=== PATIENT | male | born 1955 | race Caucasian/White ===

== ENCOUNTER 2016-05-03 05:26 | Inpatient (IN) | payer OTHER ==
[2016-05-03] MEDS ORDERED: PRILOSEC OTC20 M1 PO (05:41)
[2016-05-03 06:31] LABS: HCT-HEMATOCRIT 53.2 % (36.0-53.5); HGB-HEMOGLOBIN 18.6 gm/dl (13.5-17.0); MCH (MEAN CORPUSCULAR HGB) 33.5 pg (28.0-32.0); MCV (MEAN CELL VOLUME) 95.9 fl (82.0-96.0); MEAN PLATELET VOLUME 11.3 cmc (9.4-12.4); PLATELET COUNT 562 tho/cmm (150-450); RED BLOOD COUNT 5.55 mil/cmm (4.40-5.70); RED CELL DISTRIBUTION WIDTH 13.5 % (12.4-16.4)
[2016-05-03 06:34] LABS: WHITE BLOOD COUNT 38.6 tho/cmm (4.0-10.0)
[2016-05-03] MEDS ORDERED: CIPRO500 M2 PO (07:02)
[2016-05-03] MEDS ORDERED: FLAGYL500 M1 PO (07:03)
[2016-05-03 07:21] LABS: BAND % 6 % (0-20); BAND ABSOLUTE COUNT 2.3 tho/cmm (0-2.0)
[2016-05-03 07:23] LABS: WBC MORPHOLOGY VARIANT LYMPHS
[2016-05-03 07:31] LABS: CHLORIDE 98 mmol/l (96-110); POTASSIUM 4.9 mmol/L (3.7-5.1); SODIUM 137 mmol/L (135-145)
[2016-05-03 07:33] LABS: PROCALCITONIN 38.44 ng/ml (0.05-0.09)
[2016-05-03 07:40] LABS: ALB/GLOB RATIO 0.5 (0.8-2.0); ALBUMIN 3.1 g/dl (3.5-5.0); ALCOHOL (ETOH) <10 mg/dl (<10); ALKALINE PHOSPHATASE 144 U/L (33-138); ALT/SGPT 24 U/L (12-78); ANION GAP 29 mmol/L (0-20); AST/SGOT 23 U/L (10-40); BILIRUBIN,TOTAL 0.5 mg/dl (0.0-1.5); BLOOD UREA NITROGEN 150 mg/dl (6-24); CALCIUM 10.5 mg/dl (8.5-10.5); CARBON DIOXIDE-VENOUS 15 mmol/L (22-32); CREATININE 8.93 mg/dl (0.60-1.30); GLUCOSE 167 mg/dL (70-110); LIPASE 506 U/L (73-393); eGFR VALUE FOR BLACK 7 mL/Min
[2016-05-03 12:23] LABS: URINE LEUKOCYTE ESTERASE POSITIVE (NEG); URINE PROTEIN MODERATE (NEG); URINE SPECIFIC GRAVITY 1.025 (1.003-1.030)
[2016-05-03 12:24] LABS: URINE APPEARANCE CLOUDY; URINE BILIRUBIN SMALL (NEG); URINE BLOOD MODERATE (NEG); URINE COLOR BROWN; URINE GLUCOSE (UA) SMALL (NEG); URINE KETONE SMALL (NEG); URINE NITRITE POSITIVE (NEG)
[2016-05-03 12:36] LABS: URINE AMORPHOUS 4+; URINE BACTERIA 1+; URINE EPITHELIAL CELLS RARE /[HPF] (0-10)
[2016-05-03 14:03] LABS: MAGNESIUM 2.7 mg/dl (1.3-2.6)
[2016-05-03 14:04] LABS: ANION GAP 26 mmol/L (0-20); CARBON DIOXIDE-VENOUS 12 mmol/L (22-32); CHLORIDE 104 mmol/l (96-110); CREATININE 8.34 mg/dl (0.60-1.30); GLUCOSE 147 mg/dL (70-110); POTASSIUM 4.4 mmol/L (3.7-5.1); SODIUM 138 mmol/L (135-145); eGFR VALUE FOR BLACK 7 mL/Min
[2016-05-03 14:05] LABS: PHOSPHOROUS 11.4 mg/dl (2.5-4.9)
[2016-05-03 14:06] LABS: BLOOD UREA NITROGEN 146 mg/dl (6-24)
[2016-05-03 18:22] LABS: CALCIUM 8.5 mg/dl (8.5-10.5); CARBON DIOXIDE-VENOUS 16 mmol/L (22-32); CHLORIDE 96 mmol/l (96-110); CREATININE 8.02 mg/dl (0.60-1.30); GLUCOSE 184 mg/dL (70-110); SODIUM 136 mmol/L (135-145); eGFR VALUE FOR BLACK 8 mL/Min
[2016-05-03 18:26] LABS: ANION GAP 28 mmol/L (0-20); BLOOD UREA NITROGEN 148 mg/dl (6-24)
[2016-05-03 18:27] LABS: POTASSIUM 4.2 mmol/L (3.7-5.1)
[2016-05-04 00:52] LABS: ANION GAP 23 mmol/L (0-20); CALCIUM 8.2 mg/dl (8.5-10.5); CARBON DIOXIDE-VENOUS 19 mmol/L (22-32); CHLORIDE 98 mmol/l (96-110); CREATININE 8.28 mg/dl (0.60-1.30); GLUCOSE 129 mg/dL (70-110); SODIUM 136 mmol/L (135-145); eGFR VALUE FOR BLACK 7 mL/Min
[2016-05-04 00:57] LABS: BLOOD UREA NITROGEN 158 mg/dl (6-24)
[2016-05-04 04:14] LABS: ALBUMIN 1.9 g/dl (3.5-5.0); ALKALINE PHOSPHATASE 72 U/L (33-138); ALT/SGPT 16 U/L (12-78); ANION GAP 23 mmol/L (0-20); AST/SGOT 26 U/L (10-40); CALCIUM 7.9 mg/dl (8.5-10.5); CARBON DIOXIDE-VENOUS 22 mmol/L (22-32); CHLORIDE 95 mmol/l (96-110); CREATININE 8.25 mg/dl (0.60-1.30); GLUCOSE 134 mg/dL (70-110); POTASSIUM 3.7 mmol/L (3.7-5.1); SODIUM 136 mmol/L (135-145); eGFR VALUE FOR BLACK 7 mL/Min
[2016-05-04 04:34] LABS: ALB/GLOB RATIO 0.4 (0.8-2.0); BILIRUBIN,TOTAL 1.2 mg/dl (0.0-1.5); BLOOD UREA NITROGEN 160 mg/dl (6-24)
[2016-05-04 04:35] LABS: BASO % 0.1 % (0-2); HGB-HEMOGLOBIN 15.7 gm/dl (13.5-17.0); IMMATURE GRANULOCYTES ABSOLUTE 0.29 tho/cmm (0-0.03); LYMPH % 4.5 % (20-45); LYMPH ABSOLUTE COUNT 1.3 tho/cmm (0.8-4.5); MCH (MEAN CORPUSCULAR HGB) 33.6 pg (28.0-32.0); MEAN PLATELET VOLUME 11.5 cmc (9.4-12.4); MONOCYTE ABSOLUTE COUNT 2.6 tho/cmm (0.0-1.2); NEUTROPHIL ABSOLUTE COUNT 24.9 tho/cmm (1.6-8.0); NEUTROPHIL-AUTOMATED 24.9 tho/cmm (1.6-8.0); NEUTROPHILS % 85.4 % (40-80); PLATELET COUNT 444 tho/cmm (150-450); RED BLOOD COUNT 4.67 mil/cmm (4.40-5.70); WHITE BLOOD COUNT 29.2 tho/cmm (4.0-10.0)
[2016-05-04 04:37] LABS: MCV (MEAN CELL VOLUME) 89.9 fl (82.0-96.0)
[2016-05-04 04:39] LABS: MCHC MEAN CORPUSCULAR HGB CONC 37.4 % (32.0-36.0)
[2016-05-04 05:16] LABS: URINE TOTAL PROTEIN-RANDOM 160.7 mg/dl (<11.8)
[2016-05-04 13:40] LABS: ANION GAP 23 mmol/L (0-20); CALCIUM 7.4 mg/dl (8.5-10.5); CARBON DIOXIDE-VENOUS 26 mmol/L (22-32); CHLORIDE 93 mmol/l (96-110); CREATININE 8.33 mg/dl (0.60-1.30); GLUCOSE 128 mg/dL (70-110); POTASSIUM 3.5 mmol/L (3.7-5.1); SODIUM 138 mmol/L (135-145); eGFR VALUE FOR BLACK 7 mL/Min
[2016-05-04 13:46] LABS: BLOOD UREA NITROGEN 160 mg/dl (6-24)
[2016-05-05 03:40] LABS: HCT-HEMATOCRIT 37.2 % (36.0-53.5); HGB-HEMOGLOBIN 13.6 gm/dl (13.5-17.0); MCH (MEAN CORPUSCULAR HGB) 33.3 pg (28.0-32.0); MCV (MEAN CELL VOLUME) 91.2 fl (82.0-96.0); MEAN PLATELET VOLUME 11.3 cmc (9.4-12.4); NEUTROPHIL-AUTOMATED 33.2 tho/cmm (1.6-8.0); PLATELET COUNT 394 tho/cmm (150-450); RED BLOOD COUNT 4.08 mil/cmm (4.40-5.70); RED CELL DISTRIBUTION WIDTH 13.2 % (12.4-16.4)
[2016-05-05 03:45] LABS: ALB/GLOB RATIO 0.4 (0.8-2.0); ALBUMIN 1.8 g/dl (3.5-5.0); ALKALINE PHOSPHATASE 66 U/L (33-138); ALT/SGPT 14 U/L (12-78); ANION GAP 18 mmol/L (0-20); AST/SGOT 29 U/L (10-40); BILIRUBIN,DIRECT 0.3 mg/dl (0.0-0.3); BILIRUBIN,INDIRECT 0.4 mg/dL (0.0-1.0); BILIRUBIN,TOTAL 0.7 mg/dl (0.0-1.5); BLOOD UREA NITROGEN 126 mg/dl (6-24); CALCIUM 7.5 mg/dl (8.5-10.5); CARBON DIOXIDE-VENOUS 24 mmol/L (22-32); CHLORIDE 98 mmol/l (96-110); CREATININE 6.82 mg/dl (0.60-1.30); GLUCOSE 119 mg/dL (70-110); MAGNESIUM 2.1 mg/dl (1.3-2.6); POTASSIUM 3.9 mmol/L (3.7-5.1); SODIUM 136 mmol/L (135-145); eGFR VALUE FOR BLACK 9 mL/Min
[2016-05-05 03:48] LABS: PHOSPHOROUS 7.6 mg/dl (2.5-4.9)
[2016-05-05 03:49] LABS: MCHC MEAN CORPUSCULAR HGB CONC 36.6 % (32.0-36.0)
[2016-05-05 03:55] LABS: WHITE BLOOD COUNT 38.3 tho/cmm (4.0-10.0)
[2016-05-05 07:14] LABS: BAND % 23 % (0-20); BAND ABSOLUTE COUNT 8.8 tho/cmm (0-2.0)
[2016-05-05 07:17] LABS: PLATELET MORPHOLOGY MACRO
[2016-05-06 04:33] LABS: HCT-HEMATOCRIT 33.7 % (36.0-53.5); HGB-HEMOGLOBIN 12.1 gm/dl (13.5-17.0); MCH (MEAN CORPUSCULAR HGB) 33.2 pg (28.0-32.0); MCHC MEAN CORPUSCULAR HGB CONC 35.9 % (32.0-36.0); MCV (MEAN CELL VOLUME) 92.6 fl (82.0-96.0); MEAN PLATELET VOLUME 11.5 cmc (9.4-12.4); NEUTROPHIL-AUTOMATED 40.7 tho/cmm (1.6-8.0); RED BLOOD COUNT 3.64 mil/cmm (4.40-5.70); RED CELL DISTRIBUTION WIDTH 13.6 % (12.4-16.4)
[2016-05-06 04:35] LABS: ALB/GLOB RATIO 0.4 (0.8-2.0); ALBUMIN 1.4 g/dl (3.5-5.0); ALKALINE PHOSPHATASE 72 U/L (33-138); ALT/SGPT 11 U/L (12-78); ANION GAP 14 mmol/L (0-20); AST/SGOT 23 U/L (10-40); BILIRUBIN,DIRECT 0.2 mg/dl (0.0-0.3); BILIRUBIN,INDIRECT 0.3 mg/dL (0.0-1.0); BILIRUBIN,TOTAL 0.5 mg/dl (0.0-1.5); BLOOD UREA NITROGEN 81 mg/dl (6-24); CALCIUM 7.6 mg/dl (8.5-10.5); CARBON DIOXIDE-VENOUS 22 mmol/L (22-32); CHLORIDE 105 mmol/l (96-110); CREATININE 5.17 mg/dl (0.60-1.30); GLUCOSE 159 mg/dL (70-110); MAGNESIUM 2.2 mg/dl (1.3-2.6); PHOSPHOROUS 6.4 mg/dl (2.5-4.9); POTASSIUM 4.1 mmol/L (3.7-5.1); PREALBUMIN 8.1 mg/dl (20.0-40.0); SODIUM 137 mmol/L (135-145); eGFR VALUE FOR BLACK 13 mL/Min
[2016-05-06 04:56] LABS: WHITE BLOOD COUNT 44.9 tho/cmm (4.0-10.0)
[2016-05-06 07:27] LABS: PLATELET COUNT 351 tho/cmm (150-450)
[2016-05-06 07:31] LABS: BAND % 24 % (0-20); BAND ABSOLUTE COUNT 10.8 tho/cmm (0-2.0)
[2016-05-06 07:32] LABS: PLATELET MORPHOLOGY MACRO
[2016-05-07 05:03] LABS: HCT-HEMATOCRIT 32.9 % (36.0-53.5); HGB-HEMOGLOBIN 11.5 gm/dl (13.5-17.0); MCV (MEAN CELL VOLUME) 94.3 fl (82.0-96.0); MEAN PLATELET VOLUME 11.9 cmc (9.4-12.4); NEUTROPHIL-AUTOMATED 36.6 tho/cmm (1.6-8.0); PLATELET COUNT 331 tho/cmm (150-450); RED BLOOD COUNT 3.49 mil/cmm (4.40-5.70); RED CELL DISTRIBUTION WIDTH 13.9 % (12.4-16.4)
[2016-05-07 05:11] LABS: WHITE BLOOD COUNT 43.5 tho/cmm (4.0-10.0)
[2016-05-07 05:17] LABS: ALB/GLOB RATIO 0.3 (0.8-2.0); ALBUMIN 1.4 g/dl (3.5-5.0); ALKALINE PHOSPHATASE 117 U/L (33-138); ALT/SGPT 15 U/L (12-78); ANION GAP 14 mmol/L (0-20); AST/SGOT 31 U/L (10-40); BLOOD UREA NITROGEN 52 mg/dl (6-24); CALCIUM 7.7 mg/dl (8.5-10.5); CARBON DIOXIDE-VENOUS 24 mmol/L (22-32); CHLORIDE 102 mmol/l (96-110); CREATININE 3.95 mg/dl (0.60-1.30); GLUCOSE 114 mg/dL (70-110); MAGNESIUM 1.9 mg/dl (1.3-2.6); POTASSIUM 3.3 mmol/L (3.7-5.1); SODIUM 137 mmol/L (135-145); eGFR VALUE FOR BLACK 18 mL/Min
[2016-05-07 05:27] LABS: BILIRUBIN,DIRECT 0.7 mg/dl (0.0-0.3); BILIRUBIN,INDIRECT 0.3 mg/dL (0.0-1.0)
[2016-05-07 07:44] LABS: BAND % 15 % (0-20); BAND ABSOLUTE COUNT 6.5 tho/cmm (0-2.0)
[2016-05-08 05:26] LABS: ALT/SGPT 24 U/L (12-78); ANION GAP 17 mmol/L (0-20); BLOOD UREA NITROGEN 72 mg/dl (6-24); CALCIUM 8.1 mg/dl (8.5-10.5); CARBON DIOXIDE-VENOUS 19 mmol/L (22-32); CHLORIDE 99 mmol/l (96-110); GLUCOSE 155 mg/dL (70-110); PHOSPHOROUS 2.2 mg/dl (2.5-4.9); POTASSIUM 3.1 mmol/L (3.7-5.1); SODIUM 132 mmol/L (135-145)
[2016-05-08 05:29] LABS: ALKALINE PHOSPHATASE 232 U/L (33-138); AST/SGOT 48 U/L (10-40); BILIRUBIN,INDIRECT 0.6 mg/dL (0.0-1.0); BILIRUBIN,TOTAL 1.6 mg/dl (0.0-1.5); CREATININE 5.07 mg/dl (0.60-1.30); eGFR VALUE FOR BLACK 13 mL/Min
[2016-05-08 05:53] LABS: HCT-HEMATOCRIT 34.8 % (36.0-53.5); HGB-HEMOGLOBIN 12.1 gm/dl (13.5-17.0); MCH (MEAN CORPUSCULAR HGB) 33.2 pg (28.0-32.0); MCHC MEAN CORPUSCULAR HGB CONC 34.8 % (32.0-36.0); MCV (MEAN CELL VOLUME) 95.3 fl (82.0-96.0); MEAN PLATELET VOLUME 11.7 cmc (9.4-12.4); NEUTROPHIL-AUTOMATED 39.6 tho/cmm (1.6-8.0); PLATELET COUNT 351 tho/cmm (150-450); RED BLOOD COUNT 3.65 mil/cmm (4.40-5.70)
[2016-05-08 05:59] LABS: WHITE BLOOD COUNT 45.7 tho/cmm (4.0-10.0)
[2016-05-08 06:05] LABS: ALB/GLOB RATIO 0.3 (0.8-2.0); ALBUMIN 1.5 g/dl (3.5-5.0)
[2016-05-08 08:17] LABS: BAND % 5 % (0-20); BAND ABSOLUTE COUNT 2.3 tho/cmm (0-2.0); EOSINOPHIL % 1 % (0-7)
[2016-05-08 08:19] LABS: WBC MORPHOLOGY VACUOLES
[2016-05-09 06:06] LABS: HCT-HEMATOCRIT 32.9 % (36.0-53.5); HGB-HEMOGLOBIN 11.7 gm/dl (13.5-17.0); MCH (MEAN CORPUSCULAR HGB) 33.2 pg (28.0-32.0); MCHC MEAN CORPUSCULAR HGB CONC 35.6 % (32.0-36.0); MCV (MEAN CELL VOLUME) 93.5 fl (82.0-96.0); MEAN PLATELET VOLUME 11.1 cmc (9.4-12.4); PLATELET COUNT 343 tho/cmm (150-450); RED BLOOD COUNT 3.52 mil/cmm (4.40-5.70); RED CELL DISTRIBUTION WIDTH 13.7 % (12.4-16.4)
[2016-05-09 06:11] LABS: NEUTROPHIL-AUTOMATED 55.7 tho/cmm (1.6-8.0)
[2016-05-09 06:13] LABS: WHITE BLOOD COUNT 61.6 tho/cmm (4.0-10.0)
[2016-05-09 06:25] LABS: ALB/GLOB RATIO 0.4 (0.8-2.0); ALBUMIN 2.1 g/dl (3.5-5.0); ALKALINE PHOSPHATASE 337 U/L (33-138); ANION GAP 14 mmol/L (0-20); BILIRUBIN,DIRECT 1.4 mg/dl (0.0-0.3); BILIRUBIN,INDIRECT 0.6 mg/dL (0.0-1.0); BLOOD UREA NITROGEN 57 mg/dl (6-24); CALCIUM 8.6 mg/dl (8.5-10.5); CARBON DIOXIDE-VENOUS 23 mmol/L (22-32); CHLORIDE 99 mmol/l (96-110); CREATININE 4.03 mg/dl (0.60-1.30); GLUCOSE 124 mg/dL (70-110); MAGNESIUM 1.9 mg/dl (1.3-2.6); PHOSPHOROUS 1.2 mg/dl (2.5-4.9); POTASSIUM 3.3 mmol/L (3.7-5.1); SODIUM 133 mmol/L (135-145); eGFR VALUE FOR BLACK 18 mL/Min
[2016-05-09 06:36] LABS: ALT/SGPT 55 U/L (12-78); AST/SGOT 101 U/L (10-40)
[2016-05-09 07:35] LABS: BAND % 7 % (0-20); BAND ABSOLUTE COUNT 4.3 tho/cmm (0-2.0); EOSINOPHIL % 1 % (0-7)
[2016-05-09 07:37] LABS: WBC MORPHOLOGY TOXIC GRANULATION
[2016-05-09 13:42] LABS: IRON 16 ug/dl (49-181); IRON BINDING CAPACITY 188 ug/dl (250-450)
[2016-05-10 07:43] LABS: BASO % 0.1 % (0-2); BASO ABSOLUTE COUNT 0.1 tho/cmm (0.0-0.2); EOS % 1.2 % (0-7); EOSINOPHIL ABSOLUTE COUNT 0.6 tho/cmm (0.0-0.7); HCT-HEMATOCRIT 30.3 % (36.0-53.5); HGB-HEMOGLOBIN 11.2 gm/dl (13.5-17.0); IMMATURE GRANULOCYTES PERCENT 2.2 % (0-0.3); LYMPH % 4.6 % (20-45); LYMPH ABSOLUTE COUNT 2.3 tho/cmm (0.8-4.5); MCH (MEAN CORPUSCULAR HGB) 34.8 pg (28.0-32.0); MCV (MEAN CELL VOLUME) 94.1 fl (82.0-96.0); MEAN PLATELET VOLUME 11.8 cmc (9.4-12.4); MONO % 3.9 % (0-12); NEUTROPHIL ABSOLUTE COUNT 43.6 tho/cmm (1.6-8.0); NEUTROPHIL-AUTOMATED 43.6 tho/cmm (1.6-8.0); PLATELET COUNT 401 tho/cmm (150-450); RED BLOOD COUNT 3.22 mil/cmm (4.40-5.70); RED CELL DISTRIBUTION WIDTH 14.3 % (12.4-16.4)
[2016-05-10 07:44] LABS: WHITE BLOOD COUNT 49.6 tho/cmm (4.0-10.0)
[2016-05-10 07:50] LABS: ALB/GLOB RATIO 0.3 (0.8-2.0); ALBUMIN 1.8 g/dl (3.5-5.0); ALKALINE PHOSPHATASE 298 U/L (33-138); ALT/SGPT 46 U/L (12-78); BILIRUBIN,TOTAL 1.5 mg/dl (0.0-1.5); BLOOD UREA NITROGEN 75 mg/dl (6-24); CALCIUM 8.7 mg/dl (8.5-10.5); CARBON DIOXIDE-VENOUS 21 mmol/L (22-32); CHLORIDE 101 mmol/l (96-110); CREATININE 4.44 mg/dl (0.60-1.30); GLUCOSE 158 mg/dL (70-110); PHOSPHOROUS 2.8 mg/dl (2.5-4.9); SODIUM 134 mmol/L (135-145); eGFR VALUE FOR BLACK 16 mL/Min
[2016-05-10 07:57] LABS: ANION GAP 15 mmol/L (0-20); AST/SGOT 47 U/L (10-40); MAGNESIUM 1.9 mg/dl (1.3-2.6); POTASSIUM 3.1 mmol/L (3.7-5.1)
[2016-05-11 03:55] LABS: HCT-HEMATOCRIT 30.8 % (36.0-53.5); HGB-HEMOGLOBIN 10.9 gm/dl (13.5-17.0); MCHC MEAN CORPUSCULAR HGB CONC 35.4 % (32.0-36.0); MCV (MEAN CELL VOLUME) 93.1 fl (82.0-96.0); MEAN PLATELET VOLUME 11.2 cmc (9.4-12.4); PLATELET COUNT 536 tho/cmm (150-450); RED BLOOD COUNT 3.31 mil/cmm (4.40-5.70); RED CELL DISTRIBUTION WIDTH 14.2 % (12.4-16.4)
[2016-05-11 03:57] LABS: MCH (MEAN CORPUSCULAR HGB) 32.9 pg (28.0-32.0)
[2016-05-11 03:58] LABS: WHITE BLOOD COUNT 35.7 tho/cmm (4.0-10.0)
[2016-05-11 04:14] LABS: ANION GAP 15 mmol/L (0-20); BLOOD UREA NITROGEN 87 mg/dl (6-24); CALCIUM 9.3 mg/dl (8.5-10.5); CARBON DIOXIDE-VENOUS 20 mmol/L (22-32); CHLORIDE 107 mmol/l (96-110); CREATININE 4.27 mg/dl (0.60-1.30); GLUCOSE 172 mg/dL (70-110); MAGNESIUM 2.1 mg/dl (1.3-2.6); PHOSPHOROUS 3.2 mg/dl (2.5-4.9); POTASSIUM 3.2 mmol/L (3.7-5.1); SODIUM 139 mmol/L (135-145); eGFR VALUE FOR BLACK 17 mL/Min
[2016-05-11 06:28] LABS: BAND % 5 % (0-20); BAND ABSOLUTE COUNT 1.8 tho/cmm (0-2.0); EOSINOPHIL % 1 % (0-7)
[2016-05-12 05:27] LABS: BASO % 0.2 % (0-2); BASO ABSOLUTE COUNT 0.1 tho/cmm (0.0-0.2); EOS % 1.7 % (0-7); EOSINOPHIL ABSOLUTE COUNT 0.6 tho/cmm (0.0-0.7); HCT-HEMATOCRIT 31.6 % (36.0-53.5); HGB-HEMOGLOBIN 11.1 gm/dl (13.5-17.0); IMMATURE GRANULOCYTES PERCENT 1.2 % (0-0.3); LYMPH % 3.9 % (20-45); LYMPH ABSOLUTE COUNT 1.3 tho/cmm (0.8-4.5); MCH (MEAN CORPUSCULAR HGB) 33.1 pg (28.0-32.0); MCHC MEAN CORPUSCULAR HGB CONC 35.1 % (32.0-36.0); MCV (MEAN CELL VOLUME) 94.3 fl (82.0-96.0); MEAN PLATELET VOLUME 11.3 cmc (9.4-12.4); NEUTROPHIL ABSOLUTE COUNT 28.4 tho/cmm (1.6-8.0); NEUTROPHIL-AUTOMATED 28.4 tho/cmm (1.6-8.0); PLATELET COUNT 781 tho/cmm (150-450); RED BLOOD COUNT 3.35 mil/cmm (4.40-5.70); WHITE BLOOD COUNT 33.8 tho/cmm (4.0-10.0)
[2016-05-12 05:44] LABS: ALB/GLOB RATIO 0.3 (0.8-2.0); ALT/SGPT 39 U/L (12-78); ANION GAP 20 mmol/L (0-20); AST/SGOT 26 U/L (10-40); BILIRUBIN,DIRECT 0.6 mg/dl (0.0-0.3); BILIRUBIN,INDIRECT 0.3 mg/dL (0.0-1.0); BILIRUBIN,TOTAL 0.9 mg/dl (0.0-1.5); BLOOD UREA NITROGEN 98 mg/dl (6-24); CALCIUM 9.5 mg/dl (8.5-10.5); CARBON DIOXIDE-VENOUS 15 mmol/L (22-32); CHLORIDE 106 mmol/l (96-110); GLUCOSE 155 mg/dL (70-110); MAGNESIUM 2.1 mg/dl (1.3-2.6); PHOSPHOROUS 4.3 mg/dl (2.5-4.9); POTASSIUM 3.4 mmol/L (3.7-5.1); SODIUM 138 mmol/L (135-145); eGFR VALUE FOR BLACK 18 mL/Min
[2016-05-12 05:47] LABS: ALKALINE PHOSPHATASE 413 U/L (33-138)
[2016-05-13 05:17] LABS: BASO % 0.2 % (0-2); BASO ABSOLUTE COUNT 0.1 tho/cmm (0.0-0.2); EOSINOPHIL ABSOLUTE COUNT 0.6 tho/cmm (0.0-0.7); HCT-HEMATOCRIT 29.3 % (36.0-53.5); HGB-HEMOGLOBIN 10.4 gm/dl (13.5-17.0); IMMATURE GRANULOCYTES ABSOLUTE 0.31 tho/cmm (0-0.03); IMMATURE GRANULOCYTES PERCENT 1.1 % (0-0.3); LYMPH % 7.7 % (20-45); LYMPH ABSOLUTE COUNT 2.2 tho/cmm (0.8-4.5); MCH (MEAN CORPUSCULAR HGB) 33.4 pg (28.0-32.0); MCHC MEAN CORPUSCULAR HGB CONC 35.5 % (32.0-36.0); MCV (MEAN CELL VOLUME) 94.2 fl (82.0-96.0); MONO % 7.3 % (0-12); MONOCYTE ABSOLUTE COUNT 2.1 tho/cmm (0.0-1.2); NEUTROPHIL ABSOLUTE COUNT 22.9 tho/cmm (1.6-8.0); NEUTROPHIL-AUTOMATED 22.9 tho/cmm (1.6-8.0); NEUTROPHILS % 81.7 % (40-80); PLATELET COUNT 818 tho/cmm (150-450); RED BLOOD COUNT 3.11 mil/cmm (4.40-5.70); RED CELL DISTRIBUTION WIDTH 14.9 % (12.4-16.4); WHITE BLOOD COUNT 28.1 tho/cmm (4.0-10.0)
[2016-05-13 05:26] LABS: ALB/GLOB RATIO 0.4 (0.8-2.0); ALBUMIN 2.4 g/dl (3.5-5.0); ALKALINE PHOSPHATASE 293 U/L (33-138); ALT/SGPT 29 U/L (12-78); ANION GAP 17 mmol/L (0-20); AST/SGOT 20 U/L (10-40); BILIRUBIN,TOTAL 0.7 mg/dl (0.0-1.5); BLOOD UREA NITROGEN 67 mg/dl (6-24); CALCIUM 8.7 mg/dl (8.5-10.5); CARBON DIOXIDE-VENOUS 22 mmol/L (22-32); CHLORIDE 98 mmol/l (96-110); CREATININE 3.24 mg/dl (0.60-1.30); GLUCOSE 170 mg/dL (70-110); MAGNESIUM 1.7 mg/dl (1.3-2.6); PHOSPHOROUS 4.2 mg/dl (2.5-4.9); POTASSIUM 3.2 mmol/L (3.7-5.1); PREALBUMIN 26.7 mg/dl (20.0-40.0); SODIUM 134 mmol/L (135-145); eGFR VALUE FOR BLACK 23 mL/Min
[2016-05-14 05:03] LABS: BASO % 0.3 % (0-2); BASO ABSOLUTE COUNT 0.1 tho/cmm (0.0-0.2); EOS % 2.8 % (0-7); EOSINOPHIL ABSOLUTE COUNT 0.7 tho/cmm (0.0-0.7); HCT-HEMATOCRIT 29.1 % (36.0-53.5); HGB-HEMOGLOBIN 9.9 gm/dl (13.5-17.0); IMMATURE GRANULOCYTES ABSOLUTE 0.28 tho/cmm (0-0.03); IMMATURE GRANULOCYTES PERCENT 1.2 % (0-0.3); LYMPH % 8.8 % (20-45); LYMPH ABSOLUTE COUNT 2.1 tho/cmm (0.8-4.5); MCV (MEAN CELL VOLUME) 94.2 fl (82.0-96.0); MEAN PLATELET VOLUME 10.8 cmc (9.4-12.4); MONO % 6.7 % (0-12); MONOCYTE ABSOLUTE COUNT 1.6 tho/cmm (0.0-1.2); NEUTROPHIL ABSOLUTE COUNT 19.1 tho/cmm (1.6-8.0); NEUTROPHIL-AUTOMATED 19.1 tho/cmm (1.6-8.0); NEUTROPHILS % 80.2 % (40-80); PLATELET COUNT 909 tho/cmm (150-450); RED BLOOD COUNT 3.09 mil/cmm (4.40-5.70); RED CELL DISTRIBUTION WIDTH 14.7 % (12.4-16.4); WHITE BLOOD COUNT 23.8 tho/cmm (4.0-10.0)
[2016-05-14 05:12] LABS: ANION GAP 16 mmol/L (0-20); BLOOD UREA NITROGEN 93 mg/dl (6-24); CALCIUM 8.6 mg/dl (8.5-10.5); CARBON DIOXIDE-VENOUS 19 mmol/L (22-32); CHLORIDE 101 mmol/l (96-110); CREATININE 3.32 mg/dl (0.60-1.30); GLUCOSE 143 mg/dL (70-110); POTASSIUM 3.4 mmol/L (3.7-5.1); SODIUM 133 mmol/L (135-145); eGFR VALUE FOR BLACK 22 mL/Min
[2016-05-15 04:29] LABS: ALB/GLOB RATIO 0.3 (0.8-2.0); ALKALINE PHOSPHATASE 233 U/L (33-138); ALT/SGPT 20 U/L (12-78); ANION GAP 15 mmol/L (0-20); AST/SGOT 19 U/L (10-40); BILIRUBIN,DIRECT 0.3 mg/dl (0.0-0.3); BILIRUBIN,INDIRECT 0.2 mg/dL (0.0-1.0); BILIRUBIN,TOTAL 0.5 mg/dl (0.0-1.5); BLOOD UREA NITROGEN 94 mg/dl (6-24); CALCIUM 8.5 mg/dl (8.5-10.5); CARBON DIOXIDE-VENOUS 17 mmol/L (22-32); CHLORIDE 107 mmol/l (96-110); CREATININE 2.63 mg/dl (0.60-1.30); GLUCOSE 108 mg/dL (70-110); MAGNESIUM 1.5 mg/dl (1.3-2.6); PHOSPHOROUS 4.9 mg/dl (2.5-4.9); POTASSIUM 3.7 mmol/L (3.7-5.1); SODIUM 135 mmol/L (135-145); eGFR VALUE FOR BLACK 30 mL/Min
[2016-05-15 04:34] LABS: BASO % 0.3 % (0-2); BASO ABSOLUTE COUNT 0.1 tho/cmm (0.0-0.2); EOS % 3.1 % (0-7); EOSINOPHIL ABSOLUTE COUNT 0.6 tho/cmm (0.0-0.7); HCT-HEMATOCRIT 28.6 % (36.0-53.5); IMMATURE GRANULOCYTES ABSOLUTE 0.22 tho/cmm (0-0.03); IMMATURE GRANULOCYTES PERCENT 1.1 % (0-0.3); LYMPH % 10.8 % (20-45); LYMPH ABSOLUTE COUNT 2.1 tho/cmm (0.8-4.5); MCH (MEAN CORPUSCULAR HGB) 32.9 pg (28.0-32.0); MCV (MEAN CELL VOLUME) 94.1 fl (82.0-96.0); MEAN PLATELET VOLUME 10.4 cmc (9.4-12.4); MONO % 7.5 % (0-12); MONOCYTE ABSOLUTE COUNT 1.5 tho/cmm (0.0-1.2); NEUTROPHIL ABSOLUTE COUNT 15.4 tho/cmm (1.6-8.0); NEUTROPHIL-AUTOMATED 15.4 tho/cmm (1.6-8.0); NEUTROPHILS % 77.2 % (40-80); PLATELET COUNT 917 tho/cmm (150-450); RED BLOOD COUNT 3.04 mil/cmm (4.40-5.70); RED CELL DISTRIBUTION WIDTH 14.7 % (12.4-16.4); WHITE BLOOD COUNT 19.9 tho/cmm (4.0-10.0)
[2016-05-16 03:45] LABS: BASO % 0.7 % (0-2); BASO ABSOLUTE COUNT 0.1 tho/cmm (0.0-0.2); EOS % 4.8 % (0-7); EOSINOPHIL ABSOLUTE COUNT 0.8 tho/cmm (0.0-0.7); HCT-HEMATOCRIT 27.8 % (36.0-53.5); HGB-HEMOGLOBIN 9.4 gm/dl (13.5-17.0); IMMATURE GRANULOCYTES ABSOLUTE 0.11 tho/cmm (0-0.03); IMMATURE GRANULOCYTES PERCENT 0.7 % (0-0.3); LYMPH % 15.6 % (20-45); LYMPH ABSOLUTE COUNT 2.5 tho/cmm (0.8-4.5); MCH (MEAN CORPUSCULAR HGB) 32.3 pg (28.0-32.0); MCHC MEAN CORPUSCULAR HGB CONC 33.8 % (32.0-36.0); MCV (MEAN CELL VOLUME) 95.5 fl (82.0-96.0); MEAN PLATELET VOLUME 9.8 cmc (9.4-12.4); MONO % 6.4 % (0-12); NEUTROPHIL ABSOLUTE COUNT 11.4 tho/cmm (1.6-8.0); NEUTROPHIL-AUTOMATED 11.4 tho/cmm (1.6-8.0); NEUTROPHILS % 71.8 % (40-80); PLATELET COUNT 871 tho/cmm (150-450); RED BLOOD COUNT 2.91 mil/cmm (4.40-5.70); WHITE BLOOD COUNT 15.9 tho/cmm (4.0-10.0)
[2016-05-16 03:54] LABS: ALBUMIN 1.8 g/dl (3.5-5.0); ANION GAP 13 mmol/L (0-20); BLOOD UREA NITROGEN 68 mg/dl (6-24); CALCIUM 8.3 mg/dl (8.5-10.5); CARBON DIOXIDE-VENOUS 16 mmol/L (22-32); CHLORIDE 117 mmol/l (96-110); GLUCOSE 103 mg/dL (70-110); MAGNESIUM 1.4 mg/dl (1.3-2.6); POTASSIUM 4.1 mmol/L (3.7-5.1); SODIUM 142 mmol/L (135-145); eGFR VALUE FOR BLACK 46 mL/Min
[2016-05-16 04:39] LABS: CREATININE 1.85 mg/dl (0.60-1.30)
[2016-05-17 04:33] LABS: HCT-HEMATOCRIT 28.1 % (36.0-53.5); HGB-HEMOGLOBIN 9.4 gm/dl (13.5-17.0); MCH (MEAN CORPUSCULAR HGB) 32.6 pg (28.0-32.0); MCHC MEAN CORPUSCULAR HGB CONC 33.5 % (32.0-36.0); MCV (MEAN CELL VOLUME) 97.6 fl (82.0-96.0); NEUTROPHIL-AUTOMATED 13.9 tho/cmm (1.6-8.0); PLATELET COUNT 777 tho/cmm (150-450); RED BLOOD COUNT 2.88 mil/cmm (4.40-5.70); RED CELL DISTRIBUTION WIDTH 15.6 % (12.4-16.4); WHITE BLOOD COUNT 18.6 tho/cmm (4.0-10.0)
[2016-05-17 04:49] LABS: ANION GAP 12 mmol/L (0-20); BLOOD UREA NITROGEN 36 mg/dl (6-24); CALCIUM 8.2 mg/dl (8.5-10.5); CARBON DIOXIDE-VENOUS 17 mmol/L (22-32); CHLORIDE 118 mmol/l (96-110); GLUCOSE 109 mg/dL (70-110); SODIUM 143 mmol/L (135-145); eGFR VALUE FOR BLACK 64 mL/Min
[2016-05-17 06:51] LABS: BAND % 8 % (0-20); BAND ABSOLUTE COUNT 1.5 tho/cmm (0-2.0); EOSINOPHIL % 4 % (0-7)
[2016-05-18 04:35] LABS: BASO % 0.5 % (0-2); BASO ABSOLUTE COUNT 0.1 tho/cmm (0.0-0.2); EOS % 7.1 % (0-7); EOSINOPHIL ABSOLUTE COUNT 1.4 tho/cmm (0.0-0.7); HGB-HEMOGLOBIN 8.8 gm/dl (13.5-17.0); IMMATURE GRANULOCYTES ABSOLUTE 0.14 tho/cmm (0-0.03); IMMATURE GRANULOCYTES PERCENT 0.7 % (0-0.3); LYMPH % 15.9 % (20-45); LYMPH ABSOLUTE COUNT 3.2 tho/cmm (0.8-4.5); MCHC MEAN CORPUSCULAR HGB CONC 32.6 % (32.0-36.0); MCV (MEAN CELL VOLUME) 98.2 fl (82.0-96.0); MONO % 3.3 % (0-12); MONOCYTE ABSOLUTE COUNT 0.7 tho/cmm (0.0-1.2); NEUTROPHIL ABSOLUTE COUNT 14.4 tho/cmm (1.6-8.0); NEUTROPHIL-AUTOMATED 14.4 tho/cmm (1.6-8.0); NEUTROPHILS % 72.5 % (40-80); PLATELET COUNT 645 tho/cmm (150-450); RED BLOOD COUNT 2.75 mil/cmm (4.40-5.70); RED CELL DISTRIBUTION WIDTH 15.9 % (12.4-16.4); WHITE BLOOD COUNT 19.9 tho/cmm (4.0-10.0)
[2016-05-18 04:59] LABS: ANION GAP 12 mmol/L (0-20); BLOOD UREA NITROGEN 22 mg/dl (6-24); CALCIUM 7.8 mg/dl (8.5-10.5); CARBON DIOXIDE-VENOUS 18 mmol/L (22-32); CHLORIDE 116 mmol/l (96-110); CREATININE 1.12 mg/dl (0.60-1.30); GLUCOSE 103 mg/dL (70-110); POTASSIUM 3.9 mmol/L (3.7-5.1); SODIUM 142 mmol/L (135-145); eGFR VALUE FOR BLACK 83 mL/Min
[2016-05-18] MEDS ORDERED: IMODIUM A-D2 M4 PO (15:05)
[2016-05-19 11:07] LABS: BASO % 0.6 % (0-2); BASO ABSOLUTE COUNT 0.1 tho/cmm (0.0-0.2); EOS % 12.2 % (0-7); HCT-HEMATOCRIT 26.7 % (36.0-53.5); HGB-HEMOGLOBIN 8.7 gm/dl (13.5-17.0); IMMATURE GRANULOCYTES ABSOLUTE 0.07 tho/cmm (0-0.03); IMMATURE GRANULOCYTES PERCENT 0.4 % (0-0.3); LYMPH % 12.2 % (20-45); MCH (MEAN CORPUSCULAR HGB) 31.9 pg (28.0-32.0); MCHC MEAN CORPUSCULAR HGB CONC 32.6 % (32.0-36.0); MCV (MEAN CELL VOLUME) 97.8 fl (82.0-96.0); MEAN PLATELET VOLUME 10.5 cmc (9.4-12.4); MONO % 5.9 % (0-12); NEUTROPHIL ABSOLUTE COUNT 11.2 tho/cmm (1.6-8.0); NEUTROPHIL-AUTOMATED 11.2 tho/cmm (1.6-8.0); NEUTROPHILS % 68.7 % (40-80); PLATELET COUNT 605 tho/cmm (150-450); RED BLOOD COUNT 2.73 mil/cmm (4.40-5.70); RED CELL DISTRIBUTION WIDTH 15.7 % (12.4-16.4); WHITE BLOOD COUNT 16.4 tho/cmm (4.0-10.0)
[2016-05-19 11:35] LABS: ALB/GLOB RATIO 0.3 (0.8-2.0); ALBUMIN 1.4 g/dl (3.5-5.0); ALKALINE PHOSPHATASE 129 U/L (33-138); ALT/SGPT 16 U/L (12-78); ANION GAP 13 mmol/L (0-20); AST/SGOT 20 U/L (10-40); BILIRUBIN,TOTAL 0.3 mg/dl (0.0-1.5); BLOOD UREA NITROGEN 14 mg/dl (6-24); CALCIUM 7.3 mg/dl (8.5-10.5); CARBON DIOXIDE-VENOUS 20 mmol/L (22-32); CHLORIDE 117 mmol/l (96-110); CREATININE 0.95 mg/dl (0.60-1.30); GLUCOSE 110 mg/dL (70-110); POTASSIUM 3.5 mmol/L (3.7-5.1); SODIUM 146 mmol/L (135-145); eGFR VALUE FOR BLACK >90 mL/Min
[2016-05-20 08:57] LABS: BASO ABSOLUTE COUNT 0.2 tho/cmm (0.0-0.2); EOS % 11.4 % (0-7); EOSINOPHIL ABSOLUTE COUNT 1.9 tho/cmm (0.0-0.7); HCT-HEMATOCRIT 27.2 % (36.0-53.5); HGB-HEMOGLOBIN 8.8 gm/dl (13.5-17.0); IMMATURE GRANULOCYTES ABSOLUTE 0.15 tho/cmm (0-0.03); IMMATURE GRANULOCYTES PERCENT 0.9 % (0-0.3); LYMPH % 15.6 % (20-45); LYMPH ABSOLUTE COUNT 2.6 tho/cmm (0.8-4.5); MCH (MEAN CORPUSCULAR HGB) 31.8 pg (28.0-32.0); MCHC MEAN CORPUSCULAR HGB CONC 32.4 % (32.0-36.0); MCV (MEAN CELL VOLUME) 98.2 fl (82.0-96.0); MONO % 8.3 % (0-12); MONOCYTE ABSOLUTE COUNT 1.4 tho/cmm (0.0-1.2); NEUTROPHIL ABSOLUTE COUNT 10.5 tho/cmm (1.6-8.0); NEUTROPHIL-AUTOMATED 10.5 tho/cmm (1.6-8.0); NEUTROPHILS % 62.8 % (40-80); PLATELET COUNT 595 tho/cmm (150-450); RED BLOOD COUNT 2.77 mil/cmm (4.40-5.70); RED CELL DISTRIBUTION WIDTH 15.6 % (12.4-16.4); WHITE BLOOD COUNT 16.8 tho/cmm (4.0-10.0)
[2016-05-20 09:04] LABS: INR 1.3 INR (0.9-1.1); PROTHROMBIN TIME 15.2 SECONDS (9.0-13.6)
[2016-05-20 09:11] LABS: ANION GAP 12 mmol/L (0-20); BLOOD UREA NITROGEN 10 mg/dl (6-24); CALCIUM 7.6 mg/dl (8.5-10.5); CARBON DIOXIDE-VENOUS 19 mmol/L (22-32); CHLORIDE 121 mmol/l (96-110); CREATININE 0.76 mg/dl (0.60-1.30); GLUCOSE 97 mg/dL (70-110); POTASSIUM 3.7 mmol/L (3.7-5.1); SODIUM 148 mmol/L (135-145); eGFR VALUE FOR BLACK >90 mL/Min
--- NOTE | 2016-05-20 23:09 | NUR ---
PATIENT'S PICC LINE NEEDED TPA TWO PORTS WOULD NOT FLUSH. PHARMACY COULD NOT FIND ORDERS FOR TPA FOR PICC PROTOCOL. IN LOOKING AT CHART AND IN CHART BOB (FOR POSSIBLE THINNED ORDERS), COULD NOT LOCATE PICC ORDER SET. ALSO, EMILEE MELGOZA RN LOOKED FOR ORDERS IN [email or web address] INDICATING PICC WAS PLACED, AND SHE COULD NOT FIND ANY. NOTIFIED [facility], ORDER RECEIVED TO ADD PICC ORDER SET TO CHART SO TPA AND FLUSHES COULD BE PLACED ON APR. INCIDENT REPORT FILLED OUT IN COMPUTER THAT PICC ORDERS NEVER PUT ON CHART OR ENTERED, BUT PICC WAS PLACED IN ER.
[2016-05-22 03:48] LABS: BASO % 2.2 % (0-2); BASO ABSOLUTE COUNT 0.4 tho/cmm (0.0-0.2); EOSINOPHIL ABSOLUTE COUNT 3.3 tho/cmm (0.0-0.7); HCT-HEMATOCRIT 26.7 % (36.0-53.5); HGB-HEMOGLOBIN 8.7 gm/dl (13.5-17.0); IMMATURE GRANULOCYTES ABSOLUTE 0.25 tho/cmm (0-0.03); IMMATURE GRANULOCYTES PERCENT 1.4 % (0-0.3); LYMPH % 26.1 % (20-45); LYMPH ABSOLUTE COUNT 4.8 tho/cmm (0.8-4.5); MCH (MEAN CORPUSCULAR HGB) 31.5 pg (28.0-32.0); MCHC MEAN CORPUSCULAR HGB CONC 32.6 % (32.0-36.0); MCV (MEAN CELL VOLUME) 96.7 fl (82.0-96.0); MEAN PLATELET VOLUME 9.7 cmc (9.4-12.4); MONOCYTE ABSOLUTE COUNT 1.7 tho/cmm (0.0-1.2); NEUTROPHILS % 43.4 % (40-80); PLATELET COUNT 673 tho/cmm (150-450); RED BLOOD COUNT 2.76 mil/cmm (4.40-5.70); RED CELL DISTRIBUTION WIDTH 15.4 % (12.4-16.4); WHITE BLOOD COUNT 18.5 tho/cmm (4.0-10.0)
[2016-05-22 04:10] LABS: ANION GAP 10 mmol/L (0-20); BLOOD UREA NITROGEN 5 mg/dl (6-24); CALCIUM 7.1 mg/dl (8.5-10.5); CARBON DIOXIDE-VENOUS 21 mmol/L (22-32); CHLORIDE 121 mmol/l (96-110); CREATININE 0.67 mg/dl (0.60-1.30); GLUCOSE 94 mg/dL (70-110); POTASSIUM 3.6 mmol/L (3.7-5.1); PREALBUMIN 11.8 mg/dl (20.0-40.0); SODIUM 148 mmol/L (135-145); eGFR VALUE FOR BLACK >90 mL/Min
[2016-05-22 04:14] LABS: EOS % 17.9 % (0-7)
[2016-05-22] MEDS ORDERED: CULTURELLE1 EAC1 PO (13:35)
[2016-05-22] MEDS ORDERED: PREVALITE PACKET4 GM PO (13:37)
[2016-05-23 13:04] LABS: BASO ABSOLUTE COUNT 0.4 tho/cmm (0.0-0.2); EOSINOPHIL ABSOLUTE COUNT 3.6 tho/cmm (0.0-0.7); HCT-HEMATOCRIT 28.2 % (36.0-53.5); HGB-HEMOGLOBIN 9.4 gm/dl (13.5-17.0); IMMATURE GRANULOCYTES PERCENT 1.1 % (0-0.3); LYMPH ABSOLUTE COUNT 4.8 tho/cmm (0.8-4.5); MCH (MEAN CORPUSCULAR HGB) 32.1 pg (28.0-32.0); MCHC MEAN CORPUSCULAR HGB CONC 33.3 % (32.0-36.0); MCV (MEAN CELL VOLUME) 96.2 fl (82.0-96.0); MEAN PLATELET VOLUME 9.9 cmc (9.4-12.4); MONO % 9.2 % (0-12); MONOCYTE ABSOLUTE COUNT 1.7 tho/cmm (0.0-1.2); NEUTROPHIL ABSOLUTE COUNT 7.9 tho/cmm (1.6-8.0); NEUTROPHIL-AUTOMATED 7.9 tho/cmm (1.6-8.0); NEUTROPHILS % 42.4 % (40-80); PLATELET COUNT 714 tho/cmm (150-450); RED BLOOD COUNT 2.93 mil/cmm (4.40-5.70); RED CELL DISTRIBUTION WIDTH 15.3 % (12.4-16.4); WHITE BLOOD COUNT 18.6 tho/cmm (4.0-10.0)
[2016-05-23 13:09] LABS: EOS % 19.3 % (0-7)
[2016-05-23 13:11] LABS: ANION GAP 12 mmol/L (0-20); BLOOD UREA NITROGEN 8 mg/dl (6-24); CALCIUM 7.7 mg/dl (8.5-10.5); CARBON DIOXIDE-VENOUS 29 mmol/L (22-32); CHLORIDE 106 mmol/l (96-110); CREATININE 0.75 mg/dl (0.60-1.30); GLUCOSE 122 mg/dL (70-110); POTASSIUM 3.2 mmol/L (3.7-5.1); SODIUM 144 mmol/L (135-145); eGFR VALUE FOR BLACK >90 mL/Min
== END 2016-05-23 17:45 | DRG 853 ==
LOC: EDMED 05:26 → EMR2 08:34 → CCU 08:43 → ORW 05-05 12:50 → CCU 05-05 15:26 → 5WF 05-07 14:05 → PCUB 05-09 17:45
PROVIDERS: Emergency Medicine; Family Medicine; Internal Medicine; Internal Medicine Critical Care Medicine; Internal Medicine Nephrology; Internal Medicine Pulmonary Disease; Nurse Practitioner Family; Radiology Diagnostic Radiology; Surgery; ADMIT Hospitalist
PROC: 02HV33Z Insertion of Infusion Device into Superior Vena Cava, Percutaneous Approach (ICD-10-PCS; 2016-05-03)
PROC: B548ZZA Ultrasonography of Superior Vena Cava, Guidance (ICD-10-PCS; 2016-05-03)
PROC: 5A1D60Z (ICD-10-PCS; 2016-05-04)
PROC: 05HM33Z Insertion of Infusion Device into Right Internal Jugular Vein, Percutaneous Approach (ICD-10-PCS; 2016-05-04)
PROC: B543ZZA Ultrasonography of Right Jugular Veins, Guidance (ICD-10-PCS; 2016-05-04)
PROC: 0DTB0ZZ Resection of Ileum, Open Approach (ICD-10-PCS; principal; 2016-05-05)
DX: A41.9 Sepsis, unspecified organism (principal); R65.21 Severe sepsis with septic shock; K65.1 Peritoneal abscess; E43 Unspecified severe protein-calorie malnutrition; K55.9 Vascular disorder of intestine, unspecified; G92 Toxic encephalopathy; J18.9 Pneumonia, unspecified organism; N17.9 Acute kidney failure, unspecified; E46 Unspecified protein-calorie malnutrition; E87.1 Hypo-osmolality and hyponatremia; E87.0 Hyperosmolality and hypernatremia; E86.0 Dehydration; F10.20 Alcohol dependence, uncomplicated; E87.6 Hypokalemia; K86.89 Other specified diseases of pancreas; F17.210 Nicotine dependence, cigarettes, uncomplicated; K52.9 Noninfective gastroenteritis and colitis, unspecified; D50.9 Iron deficiency anemia, unspecified
CPT/HCPCS: C1729; C1751; C1752; C1769; C1894; C9113; G0009; G0480; J0131; J0696; J1170; J1450; J1644; J2150; J2250; J2543; J2997; J3010; J3370; J3480; J7030; J7040; J7050; P9047